=== PATIENT | female | born 1970 | race Caucasian/White ===

== ENCOUNTER 2017-11-06 06:39 | Day surgery (SDC) | payer OTHER ==
[~2017-11-06] VITALS: Ht 165.1 cm; Wt 97.0 kg
[2017-11-06] VITALS (19 sets, daily range): BP systolic 117–154; BP diastolic 61–80; PULSE 50–72; RESP 16–20; Ht 165.1 cm; Wt 97.0 kg
[2017-11-06] MEDS ORDERED: SOD CHLORIDE 0.9% 1,000 ML IV SCH (08:00)
[2017-11-06] MEDS ORDERED: CLINDAMYCIN 600 MG/D5W (PMX) 50 ML IVPB ONE (08:00)
[2017-11-06] MEDS ORDERED: BUPIVACAINE 0.25% (MPF) 30 ML INJ ONE (09:38)
[2017-11-06] MEDS ORDERED: PROPOFOL 40 ML ONE (10:10)
[2017-11-06] MEDS ORDERED: FENTAnyl 50 MCG/ML VIAL ONE ×2 (10:10→10:57)
[2017-11-06] MEDS ORDERED: LIDOCAINE 2% (SDV) 5 ML INJ ONE (10:33)
[2017-11-06] MEDS ORDERED: DEXAMETHASONE 4 MG/ML 1 ML INJ ONE (10:33)
[2017-11-06] MEDS ORDERED: ONDANSETRON 4 MG INJ ONE (10:33)
[2017-11-06] MEDS ORDERED: PROPOFOL 20 ML ONE (10:33)
--- NOTE | 2017-11-06 10:41 | OPR ---
Date/Time of Note Date/Time of Note DATE: 11/06/17 TIME: 10:39 Operative Report Procedure Date: Nov 06, 2017 Preoperative Diagnosis left arm mass Postoperative Diagnosis same Operation/Procedure Performed 1. excision of left arm mass 6 cm mass and 6 cm incision 2. localized adjacent tissue transfer with the use of skin flaps 12 sq cm defect 3. therapeutic injection of subcutaneous local anesthesia Surgeon see signature line Kinesiologist none Anesthesia Type: general Estimated Blood Loss: 10 - 50 ml's Transfusion none Specimen left shoulder mass Grafts/Implants none Complications none Pt Condition Post Procedure: stable Indications This is a 47-year-old female with a left shoulder mass. She requests surgical excision. Risks alternatives benefits and percent were discussed the patient. Patient expresses understanding consents to the operation. Procedure Description Patient is taken to the OR and prepped and draped in usual sterile fashion. Surgical timeout was performed. IV antibiotics were given. Transverse incision is made over the left posterior shoulder mass with a 10 blade. Dissection Carrs carried onto the mass. The mass was circumferentially excised. Hemostasis established. Due to large tissue defect localized adjacent tissue transfer with these of skin flaps was performed. Multilayer closure with interrupted 3-0 Vicryl and inzorb absorbable skin stapler. Therapeutic subcutaneous local anesthesia injected throughout the incision site. Dressings were applied. Michelle KELLY Nov 06, 2017 10:41
[2017-11-06] MEDS ORDERED: KETOROLAC 30 MG INJ ONE (10:57)
[2017-11-06] MEDS ORDERED: hydrALAzine 20 MG INJ IV PRN (11:00)
[2017-11-06] MEDS ORDERED: EPHEDrine SULFATE 50 MG/5 ML SYG IV PRN (11:00)
[2017-11-06] MEDS ORDERED: DIPHENHYDRAMINE 50 MG INJ IV PRN (11:00)
[2017-11-06] MEDS ORDERED: HYDROCODONE/APAP (5/325) TAB PO ONE (11:00)
[2017-11-06] MEDS ORDERED: LABETALOL HCL 20MG INJ IV PRN (11:00)
[2017-11-06] MEDS ORDERED: KETOROLAC 30 MG INJ IV PRN (11:00)
[2017-11-06] MEDS ORDERED: ONDANSETRON 4 MG INJ IV PRN (11:00)
[2017-11-06] MEDS ORDERED: FENTAnyl 50 MCG/ML VIAL IV PRN ×4 (11:00→11:02)
[2017-11-06] MEDS ORDERED: MEPERIDINE 25 MG INJ IV PRN (11:00)
[2017-11-06] MEDS ORDERED: OXYCODONE/ACETAMINOPHEN (5/325) TAB PO PRN ×2 (11:00)
== END 2017-11-06 13:00 | disposition home or self-care (01) ==
LOC: SDS 06:39
PROVIDERS: ATTEND Surgery
DX: D17.22 Benign lipomatous neoplasm of skin and subcutaneous tissue of left arm (principal); E03.9 Hypothyroidism, unspecified; E66.9 Obesity, unspecified; Z68.35 Body mass index [BMI] 35.0-35.9, adult
CPT/HCPCS: 14000; 88307; J1100; J1885; J2405; J3010; Z7512; Z7610